=== PATIENT | female | born 1990 | race Caucasian/White ===

== ENCOUNTER 2017-06-21 15:22 | Emergency (ER) | payer MEDICAID ==
[~2017-06-21] VITALS: Ht 172.7 cm; Wt 84.0 kg
[2017-06-21 15:35] VITALS: BP 127/80; PULSE 103; RESP 16; TEMP 98.5; O2SAT 98
--- NOTE | 2017-06-21 16:55 | PD ---
HPI Chief Complaint: Cold / Flu Symptoms Time Seen by Provider: 16:52 Travel History International Travel<30 days: No Contact w/Intl Traveler<30days: No Traveled to known affect area: No History of Present Illness HPI This patient speaks Pan[place]ian, on interpretation via official foreign language instructor. 26-year-old female presents for evaluation. For 2 days she's had sore throat, headache, myalgias, nausea, 2-4 episodes of loose watery stools daily. Symptoms are mild to moderate, aggravated by swallowing, she's not tried using any medications [id number] for symptom relief. Denies cough, congestion, vomiting, rash, recent travel, ear pain. No sick contacts. No other complaints at this time. [facility] Social History Alcohol Use: No Tobacco Use: No Allergies-Medications (Allergen,Severity, Reaction): Coded Allergies: No Known Allergies (Unverified , 06/21/17) Review of Systems Except as stated in HPI: all other systems reviewed are Neg Physical Exam Narrative GENERAL: Well-developed well-nourished female in no acute distress SKIN: Warm and dry. HEAD: Atraumatic. Normocephalic. EYES: Pupils equal and round. No scleral icterus. No injection or drainage. ENT: No nasal bleeding or discharge. Mucous membranes pink and moist. Tympanic membranes appear normal without erythema or fluid level. Mild oral pharyngeal erythema without exudate. NECK: Trachea midline. No JVD. CARDIOVASCULAR: Regular rate and rhythm. No murmur appreciated. RESPIRATORY: No accessory muscle use. Clear to auscultation. Breath sounds equal bilaterally. GASTROINTESTINAL: Abdomen soft, non-tender, nondistended. Hepatic and splenic margins not palpable. Data Data Last Documented VS Vital Signs Date Time Temp Pulse Resp B/P (MAP) Pulse Ox O2 Delivery O2 Flow Rate FiO2 06/21/17 15:35 98.5 103 16 127/80 (96) 98 Orders Orders Group A Rapid Strep Screen (06/21/17 16:52) Influenzae A/B Antigen (06/21/17 16:52) Ondansetron Odt (Zofran Odt) (06/21/17 17:00) Acetaminophen (Tylenol) (06/21/17 17:00) Strep Culture (Group A) (06/21/17 17:30) Ed Discharge Order (06/21/17 18:17) MDM Medical Decision Making Medical Screen Exam Complete: Yes Emergency Medical Condition: Yes Medical Record Reviewed: Yes Differential Diagnosis Pharyngitis, influenza, gastroenteritis, tonsillitis, peritonsillar abscess Narrative Course The patient appears well. Influenza antigen rapid strep screen are both performed and are negative. The patient appears to have a viral pharyngitis. Supportive care recommended. She is stable for discharge. Diagnosis Primary Impression: Pharyngitis Additional Instructions: Stay well-hydrated and well-nourished, get plenty of rest. Return for any emergent medical conditions. Med/Other Pt SpecificInfo: No Change to Meds Disposition: 01 DISCHARGE HOME Condition: Stable Jaron Lewis Jun 21, 2017 16:55
[2017-06-21] MEDS ORDERED: ONDANSETRON ODT 4 MG TAB PO ONE (17:00)
[2017-06-21] MEDS ORDERED: ACETAMINOPHEN 325 MG TAB PO ONE (17:00)
== END 2017-06-21 18:59 | disposition home or self-care (01) ==
LOC: PHED 15:22 → PHEFT 18:59
DX: J02.9 Acute pharyngitis, unspecified (principal)
CPT/HCPCS: 87081; 87804; 87880; 99283